=== PATIENT | male | born 1955 | race African-American/Black ===

== ENCOUNTER 2017-05-25 21:29 | Inpatient (IN) | payer SELFPAY ==
[~2017-05-25] VITALS: Ht 172.7 cm; Wt 61.7 kg
[2017-05-25 22:46] LABS: BASOPHILS % 0.5 % (0.0-2.0); EOSINOPHILS % 0.9 % (0.0-5.0); HEMATOCRIT. 33.9 % (42.0-52.0); HEMOGLOBIN. 12.1 g/dL (14.0-18.0); MEAN CORPUSCULAR HEMOGLOBIN 27.9 pg (28.0-32.0); MEAN CORPUSCULAR VOLUME 78.1 fL (80.0-94.0); MEAN PLATELET VOLUME 8.3 fl (7.4-10.4); NEUTROPHILS % 70.6 % (40.0-76.0); PLATELET 324 x1000/uL (130-400); RED BLOOD CELL COUNT 4.34 mill/uL (4.7-6.1); RED CELL DISTRIBUTION WIDTH 14.2 % (11.6-14.6)
[2017-05-25 22:55] LABS: D-DIMER 2.95 mg/L FEU (<0.50); INR 1.1; PARTIAL THROMBOPLASTIN TIME 29.4 sec (23.4-31.0)
[2017-05-25 22:57] LABS: CARBON DIOXIDE 28 mEq/L (21-32); CHLORIDE 100 mEq/L (98-107)
[2017-05-25 22:59] LABS: TROPONIN I < 0.02 ng/mL (0.00-0.04)
[2017-05-25] MEDS ORDERED: SODIUM CHLORIDE 0.9% 1000ML BAG (SEPSIS BOLUS) IV ONE (23:00)
[2017-05-25 23:22] LABS: CLARITY URINE CLEAR (CLEAR); COLOR URINE YELLOW (YELLOW); KETONES URINE TRACE (NEGATIVE); LEUKOCYTE ESTERASE URINE NEGATIVE (NEGATIVE); NITRITE URINE NEGATIVE (NEGATIVE); OCCULT BLOOD URINE NEGATIVE (NEGATIVE); PH URINE >=9.0 (4.5-8.0); PROTEIN URINE NEGATIVE (NEGATIVE); SPECIFIC GRAVITY URINE 1.011 (1.005-1.030); UROBILINOGEN URINE 0.2 E.U./dL (0.2-1.0)
[2017-05-26] MEDS ORDERED: IOHEXOL-350 100 ML BOTTLE ONE (03:22)
[2017-05-26 03:52] VITALS: BP 153/93
[2017-05-26] MEDS ORDERED: CHOL200010 PO (03:54)
[2017-05-26] MEDS ORDERED: ELVI1TAB3 PO (03:54)
[2017-05-26] MEDS ORDERED: LOV40 SUBCUT (03:54)
[2017-05-26 04:00] VITALS: BP 153/93
[2017-05-26] MEDS ORDERED: SODIUM CHLORIDE 0.9% 1,000 ML IV SCH (05:25)
[2017-05-26] MEDS ORDERED: IPRATROPIUM/ALBUTEROL 0.5-3(2.5)MG/3ML NEB INH PRN (05:30)
[2017-05-26] MEDS ORDERED: DIPHENHYDRAMINE 50MG/ML VIAL IV PRN (05:30)
[2017-05-26] MEDS ORDERED: CLONIDINE 0.1MG TABLET PO PRN (05:30)
[2017-05-26] MEDS ORDERED: HYDROCODONE/ACETAMINOPHEN 5/325MG TABLET PO PRN (05:30)
[2017-05-26] MEDS ORDERED: ACETAMINOPHEN 325MG TABLET PO PRN (05:30)
[2017-05-26] MEDS ORDERED: MAGNESIUM/ALUMINUM HYDROXIDE/SIMETHICONE 30ML UDC PO PRN (05:30)
[2017-05-26] MEDS ORDERED: ONDANSETRON HCL 4MG/2ML VIAL IV PRN (05:30)
[2017-05-26] MEDS ORDERED: GUAIFENESIN 200MG/10ML SUGAR FREE UDC PO PRN (05:30)
[2017-05-26 06:00] VITALS: BP 137/85
[2017-05-26] MEDS ORDERED: ENOXAPARIN 80MG/0.8ML SYR SUBCUT SCH (06:00)
[2017-05-26 08:20] VITALS: BP 132/84
[2017-05-26] MEDS ORDERED: ASPIRIN 81MG EC TABLET PO SCH (09:00)
[2017-05-26 12:05] VITALS: BP 131/80
[2017-05-26 16:00] VITALS: BP 139/77
[2017-05-26] MEDS ORDERED: ENOXAPARIN 60MG/0.6ML SYR SUBCUT SCH (21:00)
== END 2017-05-26 18:30 | disposition home or self-care (01) | DRG 204 ==
LOC: ER 21:55 → 6WST 05-26 00:27 → EDBEDREQDT 05-26 00:33 → EDBEDREQTM 05-26 00:33 → EDBEDREQ 05-26 00:33 → ENRESERV 05-26 02:37
PROVIDERS: ADMIT Hospitalist; ATTEND Hospitalist
DX: R55 Syncope and collapse (principal); E87.2 Acidosis; D68.59 Other primary thrombophilia; E86.0 Dehydration; Z85.830 Personal history of malignant neoplasm of bone; Z86.711 Personal history of pulmonary embolism; Z86.718 Personal history of other venous thrombosis and embolism; Z85.46 Personal history of malignant neoplasm of prostate
CPT/HCPCS: 36415; 70450; 71045; 71275; 80053; 81003; 83605; 83690; 83880; 84484; 85025; 85379; 85610; 85730; 87040; 93005; 96360; 96361; 99285; J1650; J7030; Q9967